=== PATIENT | female | born 1970 | race American Indian/Alaskan Native ===

== ENCOUNTER 2017-04-02 08:57 | Outpatient (CLI) | payer OTHER ==
--- NOTE | 2017-04-02 10:25 | Mammography Report ---
Bilateral mammogram: Compared to 03/28/16. CAD study utilized. Findings: Bilateral stable breast implants. Circumscribed density identified at the upper posterior right breast and subareolar area right breast. No microcalcifications. Normal axilla. Impression: Asymmetric densities right breast. Spot mag and sonographic examination advised. BI-RADS CATEGORY: 0 = Needs additional imaging evaluation ACR BI-RADS MAMMOGRAPHIC CODES: 0 = Needs additional imaging evaluation; 1 = Negative; 2 = Benign; 3 = Probably benign; 4 = Suspicious; 5 = Malignant; 6 = Known biopsy-proven malignancy COMMENT: 1. Dense breast tissue, i.e., adenosis, fibrocystic changes, etc., may obscure an underlying neoplasm. 2. Approximately 10% of cancers are not detected with mammography. 3. A negative mammography report should not delay biopsy if a clinically suspicious mass is present. COMMENT: Patient follow-up letters are generated in [employer].
== END 2017-04-02 08:58 | disposition home or self-care (01) ==
LOC: SPVWC 08:57
PROVIDERS: ATTEND Obstetrics & Gynecology
DX: Z12.31 Encounter for screening mammogram for malignant neoplasm of breast (principal)
CPT/HCPCS: 77067; G0202

== ENCOUNTER 2017-04-23 13:19 | Outpatient (CLI) | payer OTHER ==
--- NOTE | 2017-04-23 15:04 | Mammography Report ---
RIGHT DIGITAL DIAGNOSTIC MAMMOGRAM and RIGHT BREAST ULTRASOUND: 04/23/17 13:19:00 CLINICAL: Recalled for asymmetries. COMPARISON:04/02/17 screening FINDINGS: Spot magnification views were performed. Satisfactory effacement of the previously described retroareolar asymmetry. A subtle upper asymmetry persists on the MLO spot. Ultrasound of the upper right breast was performed and demonstrated several benign cysts. Cysts at 10 o'clock 8 cm from the nipple measure 8 x 7 x 3 mm and 6 x 3 x 3 mm and correlate with the mammographic asymmetry. Additional cyst at 2 o'clock 7 cm from the nipple measures 4 x 3 x 3 mm. No solid mass. Intact right implant. IMPRESSION: Benign cysts and no suspicious finding. BI-RADS CATEGORY: 2 - - Benign RECOMMENDATION: Routine mammographic screening in one year. ACR BI-RADS MAMMOGRAPHIC CODES: 0 = Needs additional imaging evaluation; 1 = Negative; 2 = Benign; 3 = Probably benign; 4 = Suspicious; 5 = Malignant; 6 = Known biopsy-proven malignancy COMMENT: 1. Dense breast tissue, i.e., adenosis, fibrocystic changes, etc., may obscure an underlying neoplasm. 2. Approximately 10% of cancers are not detected with mammography. 3. A negative mammography report should not delay biopsy if a clinically suspicious mass is present. COMMENT: Patient follow-up letters are generated via our [employer] application.
== END 2017-04-23 13:20 | disposition home or self-care (01) ==
LOC: SPVWC 13:19
PROVIDERS: ATTEND Obstetrics & Gynecology
DX: N60.01 Solitary cyst of right breast (principal); N64.89 Other specified disorders of breast
CPT/HCPCS: 76642; G0206